=== PATIENT | female | born 1980 | race Asian ===

== ENCOUNTER → 2024-06-30 08:42 | Outpatient (REF) | payer OTHER, SELFPAY | LOC: WDC 08:42 | PROVIDERS: ATTENDING PHYSICIAN Nurse Practitioner Adult Health | DX: Z12.31 Encounter for screening mammogram for malignant neoplasm of breast (principal) | CPT/HCPCS: 77063; 77067 ==

== ENCOUNTER → 2024-07-14 10:26 | Outpatient (REF) | payer OTHER, SELFPAY | LOC: WDC 10:26 | PROVIDERS: ATTENDING PHYSICIAN Nurse Practitioner Adult Health | DX: R92.8 Other abnormal and inconclusive findings on diagnostic imaging of breast (principal) | CPT/HCPCS: 76642 ==